=== PATIENT | male | born 1975 | race African-American/Black ===

== ENCOUNTER 2025-08-30 09:15 | Outpatient (CLI) | payer OTHER | END 2025-08-30 09:16 | disposition home or self-care (01) | LOC: CSHSLEEP 09:15 | PROVIDERS: ATTEND Physician Assistant | DX: E66.01 Morbid (severe) obesity due to excess calories (principal); Z68.41 Body mass index [BMI] 40.0-44.9, adult; G47.33 Obstructive sleep apnea (adult) (pediatric); G47.31 Primary central sleep apnea; R09.02 Hypoxemia | CPT/HCPCS: 95810 ==